=== PATIENT | female | born 2000 | race Caucasian/White ===

== ENCOUNTER 2019-07-22 18:30 | Outpatient (CLI) | payer OTHER, SELFPAY | END 2019-07-22 19:12 | disposition home or self-care (01) | LOC: OB 07-25 13:16 | DX: O26.23 Pregnancy care for patient with recurrent pregnancy loss, third trimester (principal); Z3A.30 30 weeks gestation of pregnancy | CPT/HCPCS: 59025; G0378; G0379 ==

== ENCOUNTER → 2020-06-11 17:00 | Outpatient (CLI) | payer OTHER, MEDICAID, SELFPAY ==
[2020-06-11 18:03] LABS: Add Manual Diff / Slide Review NO; Basophils Absolute Auto 0 /uL (0-100); Basophils Percent Auto 0.4 % (0-2); Eosinophils Absolute Auto 100 /uL (0-450); Hemoglobin 14.1 g/dL (12.0-16.0); Lymphocytes Absolute Auto 2700 /uL (1100-4500); Lymphocytes Percent Auto 28.5 % (25-40); Mean Corpuscular HGB Conc 33.5 % (30-36); Mean Corpuscular Hemoglobin 28.8 PG (26-34); Monocytes Absolute Auto 800 /uL (0-900); Monocytes Percent Auto 7.9 % (3-14); Neutrophils Absolute Auto 6000 /uL (1500-7000); Neutrophils Percent Auto 62.2 % (50-75); Platelet Count 340 X10^3/uL (150-400); Red Blood Cell Count 4.88 X10^6/uL (4.0-5.2); Red Cell Distribution Width 13.4 % (11.6-14.8); White Blood Cell Count 9.6 X10^3/uL (4.5-11.0)
[2020-06-11 19:42] LABS: Alanine Aminotransferase 30 IU/L (<35); Albumin 4.6 g/dL (3.5-5.0); Albumin Globulin Ratio 1.8 (1.0-2.8); Alkaline Phosphatase 110 U/L (38-126); Aspartate Aminotransferase 32 IU/L (14-36); BUN Creatinine Ratio 20.8 (6-22); Bilirubin Total 0.9 mg/dL (0.2-1.3); Blood Urea Nitrogen 11 mg/dL (7-17); Calcium 9.9 mg/dL (8.4-10.2); Carbon Dioxide 23 mmol/L (22-32); Chloride 105 mmol/L (98-107); Estimated Glomerular Filt Rate > 60.0 mL/min (>60); Globulin 2.6 g/dL (1.7-4.1); Glucose 72 mg/dL (70-100); HEMOLYSIS < 15 (0-50); Potassium 4.3 mmol/L (3.4-5.1); Sodium 139 mmol/L (137-145); Total Protein 7.2 g/dL (6.3-8.2)
[2020-06-11 20:13] LABS: TSH w/ Reflex to FT4 1.13 uIU/mL (0.47-4.68)
== END ==
PROVIDERS: Referring Provider Registered Nurse; Visit Provider Registered Nurse
DX: D64.9 Anemia, unspecified (principal); Z68.36 Body mass index [BMI] 36.0-36.9, adult
CPT/HCPCS: 36415; 80053; 84443; 85025

== ENCOUNTER → 2020-08-20 09:06 | Outpatient (CLI) | payer OTHER, MEDICAID, SELFPAY ==
[2020-08-20 10:02] LABS: HCG Quantitative /Beta subunit 558.2 mIU/mL; Total Iron Binding Capacity 332 ug/dL (265-497)
[2020-08-20 10:21] LABS: Ferritin 16 ng/mL (6-137)
== END ==
PROVIDERS: PCP Registered Nurse; Referring Provider Obstetrics & Gynecology; Visit Provider Obstetrics & Gynecology
DX: Z34.81 Encounter for supervision of other normal pregnancy, first trimester (principal); D50.9 Iron deficiency anemia, unspecified
CPT/HCPCS: 36415; 82728; 83550; 84702

== ENCOUNTER → 2020-08-23 10:13 | Outpatient (CLI) | payer OTHER, MEDICAID, SELFPAY ==
[2020-08-23 11:54] LABS: HCG Quantitative /Beta subunit 2265.8 mIU/mL
== END ==
PROVIDERS: PCP Registered Nurse; Referring Provider Obstetrics & Gynecology; Visit Provider Obstetrics & Gynecology
DX: Z34.81 Encounter for supervision of other normal pregnancy, first trimester (principal)
CPT/HCPCS: 36415; 84702

== ENCOUNTER 2020-08-31 22:34 | Emergency (ER) | payer OTHER, MEDICAID, SELFPAY ==
[2020-08-31 22:43] VITALS: BP 136/78; PULSE 92; RESP 18; TEMP 36.7; O2SAT 100; BMI 36.1
--- NOTE | 2020-08-31 22:58 | ED_ITS ---
HPI - General Chief complaint: Urogenital-Female Stated complaint: Thinks having a miscarriage Time Seen by Provider: 08/31/20 22:45 Source: patient Mode of arrival: Ambulatory Limitations: no limitations History of Present Illness HPI Narrative: Patient here for complaints of vaginal bleeding/spotting starting 2 days ago with small amount of clots. No syncope or dyspnea. Patient is A4..... LMP July 18, 2020. Had phone call intake with OBGYN Dr. Morales office on August 26, 2020. Last miscarriage was November. Requiring D&C. Complains of mild discomfort in the pelvis. No history of ectopic . Has appointment with Dr. Morales next week. Placed on hormone due to previous miscarriages, is on vitamin Hx Last Menstrual Period: July 18, 2020 Patient : Yes Related Data Home Medications Medication Instructions Recorded Confirmed Vitamin 1 tab PO DAILY 06/11/20 06/14/20 aspirin 81 mg tablet,delayed 81 mg PO DAILY 08/19/20 release Previous Rx's Medication Instructions Recorded progesterone micronized 200 mg 200 mg PO BEDTIME 30 Days #30 cap 08/19/20 capsule Allergies Allergy/AdvReac Type Severity Reaction Status Date / Time etonogestrel [From Nexplanon] Allergy Severe Large area Verified 08/26/20 12:21 w/Hives; Penicillins Allergy Mild Hives, Verified 08/26/20 12:21 Throat swelling. Review of Systems Review of Systems Narrative: GENERAL: Denies chills, fatigue, malaise, fever, sweats. HEENT: Denies sinus pain, ear pain, sore throat, difficulty swallowing RESPIRATORY: Denies dyspnea, cough CARDIOVASCULAR: Denies chest pain, palpitations, edema, GASTROINTESTINAL: Denies nausea, vomiting, abdominal pain, diarrhea, cons tipation, melena. : Denies dysuria, frequency, hematuria, complains of pelvic pain/vaginal bleeding MUSCULOSKELETAL: denies muscle or bony pain SKIN: Denies rash, skin lesions NEUROLOGIC: Denies weakness, headache, numbness, change in speech, confusion PSYCHIATRIC: No SI or HI or hallucinations ROS Unobtainable: All systems reviewed & are unremarkable except as noted in HPI and below PMFSH - Past Medical History Hx Last Menstrual Period: July 18, 2020 Patient : Yes Exam Narrative Exam Narrative: GENERAL: patient appears stated age. Well-nourished, well- developed patient, in no distress, not toxic not dyspneic HEAD: Normocephalic. EYES: Pupils equal round and reactive. No scleral icterus. No injection no discharge ENT: Mucous membranes moist. No drooling no tongue elevation no trismus no malocclusion NECK: Trachea midline. Non tender CARDIOVASCULAR: Regular rate and rhythm without murmurs, gallops, or rubs. RESPIRATORY: Clear to auscultation. Breath sounds equal bilaterally. No wheezes, rales, or rhonchi. GASTROINTESTINAL: Abdomen soft, non-tender, nondistended. : Nurse Sahara, at bedside to assist in electronic scale tester in pelvic exam. Normal external. No vaginal discharge. No bleeding or blood clots in the vaginal vault, os is closed. No CMT. No lesions. No uterine tenderness no adnexal tenderness no tissue at the os EXTREMITIES: No gross deformities. BACK: Nontender without deformity or crepitance. No flank tenderness. NEURO: AOx4. SKIN: Warm and dry PSYCH: Not anxious, is cooperative Initial Vital Signs Initial Vital Signs: Vital Signs Temperature 98.1 F 08/31/20 22:43 Pulse Rate 92 H 08/31/20 22:43 Respiratory Rate 18 08/31/20 22:43 Blood Pressure 136/78 08/31/20 22:43 Pulse Oximetry 100 08/31/20 22:43 Course Course Course Narrative: No complaints during stay at the emergency department. No bleeding. Orders Ordered: ED Orders 08/31/20 23:09 Wet Prep Tric BV Jennifer Stat 08/31/20 23:30 ABO RH Type Stat Complete Blood Count AUTO DIFF Stat Comprehensive Metabolic Panel Stat HCG Quantitative /Beta subunit Stat Prothrombin Time INR Stat 08/31/20 23:39 Chlamydia Gonorrhea PCR -URINE Stat Reevaluation(s) Reevaluation #1: Reviewed results with patient and discussion with on-call OBGYN doctor Pereira, patient agrees with treatment plan ultrasound this time. Follow up on Wednesday with Dr. Morales and repeat quantitative hCG Time: 00:26 Consultations Consultation #1: Spoke with cut pressman inclusion internship Dr Pereira, no ultrasound at this time. Appropriate for follow-up tomorrow/Wednesday with her OBGYN Dr. Morales for repeat quantitative hCG Time: 00:27 Vital Signs Vital signs: Vital Signs - 8 hr 08/31/20 22:43 Temperature 98.1 F Pulse Rate 92 H Respiratory Rate 18 Blood Pressure 136/78 Pulse Oximetry 100 MDM - OB/Uterine Contractions Medical Records Attestation: I reviewed the patient's medical records. Lab Data Attestation: I reviewed the patient's lab results. Result diagrams: 08/31/20 23:30 08/31/20 23:30 Labs: Lab Results 08/31/20 08/31/20 08/31/20 Range/Units 23:30 23:30 23:30 WBC 14.5 H (4.5-11.0) X10^3/uL RBC 4.35 (4.0-5.2) X10^6/uL Hgb 12.5 (12.0-16.0) g/dL Hct 37.8 (36-46) % MCV 86.8 (80-100) fL MCH 28.8 (26-34) PG MCHC 33.2 (30-36) % RDW 13.1 (11.6-14.8) % Plt Count 381 (150-400) X10^3/uL Neut % (Auto) 71.2 (50-75) % Lymph % (Auto) 19.7 L (25-40) % [place] % (Auto) 7.4 (3-14) % Eos % (Auto) 1.0 L (2-4) % Baso % (Auto) 0.7 (0-2) % Neut # (Auto) 25229 H (0359-2731) /uL Lymph # (Auto) 2900 (4890-1826) /uL [place] # (Auto) 1100 H (0-900) /uL Eos # (Auto) 100 (0-450) /uL Baso # (Auto) 100 (0-100) /uL PT 12.2 (10.1-12.7) SECONDS INR 1.1 (0.9-1.3) Sodium 135 L (137-145) mmol/L Potassium 4.4 (3.4-5.1) mmol/L Chloride 102 (98-107) mmol/L Carbon Dioxide 27 (22-32) mmol/L BUN 14 (7-17) mg/dL Creatinine 0.56 (0.52-1.04) mg/dL Estimated GFR > 60.0 (>60) mL/min BUN/Creatinine Ratio 25.0 H (6-22) Glucose 107 H (70-100) mg/dL Calcium 9.5 (8.4-10.2) mg/dL Total Bilirubin 0.4 (0.2-1.3) mg/dL AST 23 (14-36) IU/L ALT 20 (<35) IU/L Alkaline Phosphatase 78 (38-126) U/L Total Protein 7.2 (6.3-8.2) g/dL Albumin 4.1 (3.5-5.0) g/dL Globulin 3.1 (1.7-4.1) g/dL Albumin/Globulin Ratio 1.3 (1.0-2.8) HCG, Quant 96375 mIU/mL Blood Type 08/31/20 Range/Units 23:30 WBC (4.5-11.0) X10^3/uL RBC (4.0-5.2) X10^6/uL Hgb (12.0-16.0) g/dL Hct (36-46) % MCV (80-100) fL MCH (26-34) PG MCHC (30-36) % RDW (11.6-14.8) % Plt Count (150-400) X10^3/uL Neut % (Auto) (50-75) % Lymph % (Auto) (25-40) % [place] % (Auto) (3-14) % Eos % (Auto) (2-4) % Baso % (Auto) (0-2) % Neut # (Auto) (5527-0998) /uL Lymph # (Auto) (9757-8139) /uL [place] # (Auto) (0-900) /uL Eos # (Auto) (0-450) /uL Baso # (Auto) (0-100) /uL PT (10.1-12.7) SECONDS INR (0.9-1.3) Sodium (137-145) mmol/L Potassium (3.4-5.1) mmol/L Chloride (98-107) mmol/L Carbon Dioxide (22-32) mmol/L BUN (7-17) mg/dL Creatinine (0.52-1.04) mg/dL Estimated GFR (>60) mL/min BUN/Creatinine Ratio (6-22) Glucose (70-100) mg/dL Calcium (8.4-10.2) mg/dL Total Bilirubin (0.2-1.3) mg/dL AST (14-36) IU/L ALT (<35) IU/L Alkaline Phosphatase (38-126) U/L Total Protein (6.3-8.2) g/dL Albumin (3.5-5.0) g/dL Globulin (1.7-4.1) g/dL Albumin/Globulin Ratio (1.0-2.8) HCG, Quant mIU/mL Blood Type B Positive Urine Dip Bedside Urine Glucose Negative Bedside Urine Bilirubin - Negative Bedside Urine Ketone - Negative Urine Specific [place] 1.020 Bedside Urine Occult Blood - Negative Bedside Urine pH 6.0 Bedside Urine Protein - Negative Bedside Urine Urobilinogen - Negative Bedside Urine Nitrite - Negative Bedside Urine Leukocytes - Negative Esterase MDM Narrative Medical decision making narrative: A quantitative hCG levels on August 20, 2025 158, August 23, 2020 was 2265, today [phone],[id number] appropriate for discharge home. White cell count nonspecific and could be elevated during . No recent illness fever chills. Not tachycardic or hypotensive. No brisk bleeding during vaginal exam. Ectopic in differential and discussed with Dr. Pereira, but clinically likely threatened , patient in no distress. Only mild pelvic pain. No active bleeding at this time. No peritoneal signs. Discharge Plan Departure Patient Disposition: Home Clinical Impression: Miscarriage, threatened, early Discharge Date/Time: 09/01/20 00:50 Instructions: DI for Threatened Activity Restrictions/Additional Instructions: Call Dr. Morales office on Wednesday morning for office recheck this week, she may want to see you before your 1st appointment. No sexual activity. Return if worse if any questions concerns or increased bleeding. Prescriptions: No Action progesterone micronized [Prometrium] 200 mg capsule 200 mg PO BEDTIME 30 Days Qty: 30 RF: 3 aspirin [Adult Aspirin Regimen] 81 mg tablet,delayed release (DR/EC) 81 mg PO DAILY RF: 0 Vitamin 1 tab PO DAILY RF: 0 Referrals: Steffanie Morales MD [Physician] - Juan Rawls ARNP [Primary Care Provider] -
[2020-08-31 23:40] LABS: Add Manual Diff / Slide Review NO; Basophils Absolute Auto 100 /uL (0-100); Basophils Percent Auto 0.7 % (0-2); Eosinophils Absolute Auto 100 /uL (0-450); Hematocrit 37.8 % (36-46); Hemoglobin 12.5 g/dL (12.0-16.0); Lymphocytes Absolute Auto 2900 /uL (1100-4500); Lymphocytes Percent Auto 19.7 % (25-40); Mean Corpuscular HGB Conc 33.2 % (30-36); Mean Corpuscular Hemoglobin 28.8 PG (26-34); Mean Corpuscular Volume 86.8 fL (80-100); Monocytes Absolute Auto 1100 /uL (0-900); Monocytes Percent Auto 7.4 % (3-14); Neutrophils Absolute Auto 10400 /uL (1500-7000); Neutrophils Percent Auto 71.2 % (50-75); Platelet Count 381 X10^3/uL (150-400); Red Blood Cell Count 4.35 X10^6/uL (4.0-5.2); Red Cell Distribution Width 13.1 % (11.6-14.8); White Blood Cell Count 14.5 X10^3/uL (4.5-11.0)
[2020-08-31 23:44] LABS: INR 1.1 (0.9-1.3); Prothrombin Time 12.2 SECONDS (10.1-12.7)
[2020-08-31 23:53] LABS: Alanine Aminotransferase 20 IU/L (<35); Albumin 4.1 g/dL (3.5-5.0); Albumin Globulin Ratio 1.3 (1.0-2.8); Alkaline Phosphatase 78 U/L (38-126); Aspartate Aminotransferase 23 IU/L (14-36); Bilirubin Total 0.4 mg/dL (0.2-1.3); Blood Urea Nitrogen 14 mg/dL (7-17); Calcium 9.5 mg/dL (8.4-10.2); Carbon Dioxide 27 mmol/L (22-32); Chloride 102 mmol/L (98-107); Estimated Glomerular Filt Rate > 60.0 mL/min (>60); Globulin 3.1 g/dL (1.7-4.1); Glucose 107 mg/dL (70-100); HEMOLYSIS < 15 (0-50); Potassium 4.4 mmol/L (3.4-5.1); Sodium 135 mmol/L (137-145); Total Protein 7.2 g/dL (6.3-8.2)
[2020-09-01 00:13] LABS: HCG Quantitative /Beta subunit 24596 mIU/mL
[2020-09-01 01:17] LABS: Urine N gonorrhoeae NOT DETECTED
[2020-09-01 01:19] LABS: Urine Chlamydia NOT DETECTED
== END 2020-09-01 00:50 | disposition home or self-care (01) ==
PROVIDERS: Emergency Provider Emergency Medicine; PCP Registered Nurse
DX: O20.0 Threatened abortion (principal); R10.2 Pelvic and perineal pain
CPT/HCPCS: 36415; 80053; 81003; 84702; 85025; 85610; 86900; 86901; 87210; 87491; 87591; 99283

== ENCOUNTER → 2020-09-30 17:34 | Outpatient (CLI) | payer OTHER, MEDICAID, SELFPAY ==
[2020-09-30 17:56] LABS: Add Manual Diff / Slide Review NO; Basophils Absolute Auto 0 /uL (0-100); Basophils Percent Auto 0.3 % (0-2); Eosinophils Absolute Auto 200 /uL (0-450); Eosinophils Percent Auto 1.6 % (2-4); Hematocrit 39.4 % (36-46); Hemoglobin 13.1 g/dL (12.0-16.0); Lymphocytes Absolute Auto 3300 /uL (1100-4500); Lymphocytes Percent Auto 25.7 % (25-40); Mean Corpuscular HGB Conc 33.2 % (30-36); Mean Corpuscular Hemoglobin 28.8 PG (26-34); Mean Corpuscular Volume 86.7 fL (80-100); Monocytes Absolute Auto 1000 /uL (0-900); Neutrophils Absolute Auto 8200 /uL (1500-7000); Neutrophils Percent Auto 64.4 % (50-75); Platelet Count 355 X10^3/uL (150-400); Red Blood Cell Count 4.54 X10^6/uL (4.0-5.2); Red Cell Distribution Width 13.3 % (11.6-14.8); White Blood Cell Count 12.7 X10^3/uL (4.5-11.0)
[2020-09-30 19:01] LABS: HIV 1 & 2 Ab/Ag 4th Gen Combo NEGATIVE (NEGATIVE); Hep C Virus Ab w/Reflex Quant NEGATIVE s/c (NEGATIVE); Hepatitis B Surface Antigen NEGATIVE s/c (NEGATIVE); Rubella Antibody IgG 18.6 IU/mL (>15)
[2020-10-02 07:00] LABS: RPR Screen Non Reactive (Non Reactive)
[2020-10-02 10:30] LABS: Varicella IgG Antibody 856 index (Immune >165)
== END ==
PROVIDERS: PCP Registered Nurse; Referring Provider Obstetrics & Gynecology; Visit Provider Obstetrics & Gynecology
DX: Z34.81 Encounter for supervision of other normal pregnancy, first trimester (principal)
CPT/HCPCS: 36415; 80055; 86787; 86803; 86850; 86900; 86901; 87389

== ENCOUNTER → 2020-10-10 15:17 | Outpatient (CLI) | payer OTHER, MEDICAID, SELFPAY | PROVIDERS: PCP Registered Nurse; Referring Provider Obstetrics & Gynecology; Visit Provider Obstetrics & Gynecology | DX: O26.21 Pregnancy care for patient with recurrent pregnancy loss, first trimester (principal); O20.9 Hemorrhage in early pregnancy, unspecified; Z3A.12 12 weeks gestation of pregnancy | CPT/HCPCS: 36415 ==

== ENCOUNTER 2020-10-10 15:42 | Observation (INO) | payer OTHER, MEDICAID, SELFPAY ==
[2020-10-10] MEDS: LACTATED RINGERS 1,000 ML 1000 ML IV (16:20)
[2020-10-10] MEDS: ONDANSETRON 4 MG/2 ML INJ IV (16:40)
== END 2020-10-10 17:44 | disposition home or self-care (01) ==
PROVIDERS: Admitting Provider Obstetrics & Gynecology; PCP Registered Nurse; Referring Provider Obstetrics & Gynecology; Visit Provider Obstetrics & Gynecology
DX: O26.21 Pregnancy care for patient with recurrent pregnancy loss, first trimester (principal); O20.9 Hemorrhage in early pregnancy, unspecified; O21.0 Mild hyperemesis gravidarum; Z3A.12 12 weeks gestation of pregnancy
CPT/HCPCS: 36415; 96360; G0378; G0379; J2405

== ENCOUNTER 2020-10-27 22:02 | Emergency (ER) | payer OTHER, MEDICAID, SELFPAY ==
[2020-10-27 22:09] VITALS: BP 127/70; PULSE 98; RESP 18; TEMP 37.2; O2SAT 99; BMI 37.0
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
[2020-10-27] MEDS: METOCLOPRAMIDE 10 MG/2 ML INJ IV (22:27)
[2020-10-27] MEDS: SODIUM CHLORIDE 0.9% 1,000 ML 1000 ML IV (22:27)
[2020-10-27] MEDS: PANTOPRAZOLE 40 MG VIAL IV (22:28)
[2020-10-27 22:32] LABS: Add Manual Diff / Slide Review NO; Basophils Absolute Auto 0 /uL (0-100); Basophils Percent Auto 0.2 % (0-2); Eosinophils Absolute Auto 200 /uL (0-450); Eosinophils Percent Auto 1.3 % (2-4); Hematocrit 36.3 % (36-46); Hemoglobin 12.4 g/dL (12.0-16.0); Lymphocytes Absolute Auto 3200 /uL (1100-4500); Lymphocytes Percent Auto 25.5 % (25-40); Mean Corpuscular HGB Conc 34.1 % (30-36); Mean Corpuscular Hemoglobin 29.5 PG (26-34); Mean Corpuscular Volume 86.5 fL (80-100); Monocytes Absolute Auto 1000 /uL (0-900); Monocytes Percent Auto 8.1 % (3-14); Neutrophils Absolute Auto 8200 /uL (1500-7000); Neutrophils Percent Auto 64.9 % (50-75); Platelet Count 363 X10^3/uL (150-400); Red Blood Cell Count 4.19 X10^6/uL (4.0-5.2); Red Cell Distribution Width 13.5 % (11.6-14.8); White Blood Cell Count 12.7 X10^3/uL (4.5-11.0)
[2020-10-27 22:42] LABS: BUN Creatinine Ratio 25.8 (6-22); Blood Urea Nitrogen 8 mg/dL (7-17); Calcium 9.6 mg/dL (8.4-10.2); Carbon Dioxide 26 mmol/L (22-32); Chloride 107 mmol/L (98-107); Estimated Glomerular Filt Rate > 60.0 mL/min (>60); Glucose 99 mg/dL (70-100); HEMOLYSIS < 15 (0-50); Potassium 3.7 mmol/L (3.4-5.1); Sodium 136 mmol/L (137-145)
[2020-10-27 22:43] LABS: Ketones (Beta-Hydroxybutyrate) 0.08 mmol/L (<0.27)
[2020-10-27 23:12] VITALS: PULSE 85; O2SAT 100
[2020-10-27] MEDS: METOCLOPRAMIDE HCL 10 MG TABLET PO (23:21)
== END 2020-10-27 23:27 | disposition home or self-care (01) ==
PROVIDERS: Emergency Provider Emergency Medicine; PCP Registered Nurse
DX: O21.9 Vomiting of pregnancy, unspecified (principal); R53.83 Other fatigue; Z3A.14 14 weeks gestation of pregnancy
CPT/HCPCS: 36415; 80048; 82009; 85025; 96361; 96374; 96375; 99281; 99284; C9113; J2765

== ENCOUNTER → 2020-11-04 12:00 | Outpatient (CLI) | payer OTHER, MEDICAID, SELFPAY ==
[2020-11-06 20:36] LABS: AFP Value 29.9 ng/mL (.); Gest Age on Col Date 15.6 weeks (.); Insulin Dep Diabetes No (.); OSBR Risk 1IN 8933 (.); Results Report (.); Test Results *Screen Negative* (.)
== END ==
PROVIDERS: PCP Registered Nurse; Referring Provider Obstetrics & Gynecology; Visit Provider Obstetrics & Gynecology
DX: Z34.82 Encounter for supervision of other normal pregnancy, second trimester (principal); Z3A.15 15 weeks gestation of pregnancy
CPT/HCPCS: 36415; 82105

== ENCOUNTER → 2020-11-26 09:09 | Outpatient (CLI) | payer OTHER, MEDICAID, SELFPAY ==
--- NOTE | 2020-11-26 09:11 | DI.US.S_ITS ---
PROCEDURE: US OB >= 14 WEEKS FETUS INDICATIONS: ANATOMY OUTSIDE/PRIOR DATING DATA: Last menstrual period (LMP): 07/18/20. LMP-based estimated date of delivery (VALERIE): 04/24/21 . First dating scan (date and location): 09/25/[address] Morales . Estimated date of delivery (VALERIE) from first dating scan: 04/26/21 . TECHNIQUE: Real-time scanning was performed of the fetus, with image documentation and biometric measurements. Endovaginal scanning: Not needed COMPARISON: [facility], , OB >= 14 WEEKS FETUS, 11/04/2020, 11:47. [facility], , OB >= 14 WEEKS FETUS, 10/10/2020, 15:07. FINDINGS: General: A single living intrauterine gestation is present. Presentation: Transverse head left. Placenta: Placental position is posterior , without previa. Lower placental edge 2 cm or less from internal cervical os qualifies as low lying placenta. Amniotic fluid index: 10.2 cm, normal range is 5-24 cm. heart rate: 153 beats per minute. Maternal cervical canal: 3.9 cm long. Normal lower limit is 2.5 cm. Report any funneling of internal cervical os: % of canal length, shape (U or V), width or any U-shaped funneling. biometrics: Biparietal diameter: 4.1 cm, 18 weeks 3 days Head circumference: 15.8 cm, 18 weeks 2 days Abdominal circumference: 14.2 cm, 19 weeks 4 days Femur length: 3.1 cm, 19 weeks 4 days Estimated gestational age from initial scan: 18 weeks 3 days. Composite gestational age from present scan: 19 weeks 0 days Estimated weight and percentile: 288 g, upper 93rd percentile Measurement variability for biometric dating: +/- 7 days from 14 weeks to 15 weeks 6 days gestation, +/- 10 days from 16 weeks to 21 weeks 6 days gestation, +/- 2 weeks from 22 weeks to 27 weeks 6 days gestation, +/- 3 weeks for 28 weeks gestation or later. weight reference: 4500 g or EFW >90/95% is considered macrosomia or large for gestational age. EFW <10% is small for gestational age. EFW 5% or less is considered intra-uterine growth restriction. Anatomic survey: Neuro: Ventricles are non-dilated at less than 10 mm. Cisterna magna is normal at 3-11 mm. Cerebellum is normal in size and morphology. Nuchal skin fold: Normal at less than 6 mm between 14-21 weeks gestational age. Face: Nose and lips, facial profile are normal. Spine: No evidence for spina bifida. Heart: 4-chambered heart is present, with normal ventricular outflow tracts. Diaphragm: Diaphragm is intact. Stomach: Left-sided stomach is present. Kidneys: No hydronephrosis. Normal is less than 5 mm in 2nd trimester, less than 7 mm in 3rd trimester. Cord: 3-vessel cord has orthotopic insertion. Bladder: Normal in size. Extremities: All 4 extremities identified. IMPRESSION: Normal survey of anatomy, no nominal E found, appropriate interval growth, delivery date is projected to be centered on 04/26/21. Dictated by: Johan Rivas M.D. on 11/26/2020 at 13:35 Approved by: Johan Rivas M.D. on 11/26/2020 at 13:38
== END ==
PROVIDERS: PCP Registered Nurse; Referring Provider Obstetrics & Gynecology; Visit Provider Obstetrics & Gynecology
DX: Z34.82 Encounter for supervision of other normal pregnancy, second trimester (principal); Z3A.19 19 weeks gestation of pregnancy
CPT/HCPCS: 76811

== ENCOUNTER → 2020-12-30 16:23 | Outpatient (CLI) | payer OTHER, MEDICAID, SELFPAY ==
[2021-01-02 02:36] LABS: Chlamydia trachomatis NAA Negative (Negative); Neisseria gonorrhoeae NAA Negative (Negative)
== END ==
PROVIDERS: PCP Registered Nurse; Visit Provider Obstetrics & Gynecology
DX: Z34.81 Encounter for supervision of other normal pregnancy, first trimester (principal); Z3A.23 23 weeks gestation of pregnancy
CPT/HCPCS: 87491; 87591

== ENCOUNTER → 2021-02-04 15:53 | Outpatient (CLI) | payer OTHER, MEDICAID, SELFPAY ==
--- NOTE | 2021-02-04 15:53 | DI.US.S_ITS ---
PROCEDURE: US OB LIMITED INDICATIONS: size >> dates, growth and RYAN OUTSIDE/PRIOR DATING DATA: Last menstrual period (LMP): 07/18/2020. LMP-based estimated date of delivery (VALERIE): 04/24/2021 . First dating scan (date and location): 09/25/2020 . Estimated date of delivery (VALERIE) from first dating scan: 04/26/2021 . TECHNIQUE: Real-time scanning was performed of the fetus, with image documentation and biometric measurements. Endovaginal scanning: No COMPARISON: [facility], OB >= 14 WEEKS FETUS, 11/26/2020, 9:39. FINDINGS: General: A single living intrauterine gestation is present. Presentation: Vertex. Placenta: Placental position is posterior , without previa. Amniotic fluid index: 13.4 cm, normal range is 5-24 cm. heart rate: 144 beats per minute. Maternal cervical canal: Not well seen. biometrics: Biparietal diameter: 29 weeks 3 days Head circumference: 28 weeks 1 day Abdominal circumference: 29 weeks Femur length: 29 weeks 3 days Estimated gestational age from initial scan: 28 weeks 3 days Composite gestational age from present scan: 29 weeks Estimated weight and percentile: 1332 g, 60 second percentile Measurement variability for biometric dating: +/- 7 days from 14 weeks to 15 weeks 6 days gestation, +/- 10 days from 16 weeks to 21 weeks 6 days gestation, +/- 2 weeks from 22 weeks to 27 weeks 6 days gestation, +/- 3 weeks for 28 weeks gestation or later. weight reference: 4500 g or EFW >90/95% is considered macrosomia or large for gestational age. EFW <10% is small for gestational age. EFW 5% or less is considered intra-uterine growth restriction. Other: Not applicable. IMPRESSION: Single living IUP redemonstrated and interval growth is within normal limits. Dictated by: Chang DURAN Interpreted: Johan Rivas MD on 02/04/2021 at 17:26 Approved by: Johan Rivas M.D. on 02/04/2021 at 17:31
== END ==
PROVIDERS: PCP Registered Nurse; Referring Provider Family Medicine; Visit Provider Family Medicine
DX: O26.843 Uterine size-date discrepancy, third trimester (principal); Z3A.29 29 weeks gestation of pregnancy
CPT/HCPCS: 76815

== ENCOUNTER → 2021-06-23 11:25 | Outpatient (CLI) | payer OTHER, MEDICAID, SELFPAY ==
[2021-06-23 12:26] LABS: COVID19 -Nasal RAPID Negative (Negative)
== END ==
PROVIDERS: PCP Registered Nurse; Visit Provider Physician Assistant
DX: R05 Cough (principal); R06.02 Shortness of breath; R09.81 Nasal congestion; R51.9 Headache, unspecified; Z20.822 Contact with and (suspected) exposure to COVID-19
CPT/HCPCS: 87635

== ENCOUNTER → 2021-08-05 16:43 | Outpatient (CLI) | payer OTHER, MEDICAID, SELFPAY ==
[2021-08-05 17:19] LABS: COVID19 -Nasal RAPID POSITIVE (Negative)
== END ==
PROVIDERS: PCP Registered Nurse; Visit Provider Physician Assistant
DX: U07.1 COVID-19 (principal)
CPT/HCPCS: 87635; C9803

== ENCOUNTER → 2021-12-04 09:53 | Outpatient (CLI) | payer OTHER, MEDICAID, SELFPAY ==
[2021-12-04 11:28] LABS: Ur Creatinine Normal (Normal); Ur Specific Gravity Normal (Normal); Urine pH Normal (Normal)
[2021-12-04 11:29] LABS: UR Morphine/Opiate cutoff 300 Negative (Negative); Urine Amphetamines Negative (Negative); Urine Barbiturates Negative (Negative); Urine Benzodiazepines Negative (Negative); Urine Cocaine Negative (Negative); Urine MDMA Negative (Negative); Urine Methadone Negative (Negative); Urine Methamphetamines Negative (Negative); Urine Oxycodone Negative (Negative); Urine Phencyclidine Negative (Negative); Urine Tetrahydrocannabinol Negative (Negative); Urine Tricyclic Antidepressant Negative (Negative)
[2021-12-04 11:52] LABS: Alanine Aminotransferase 16 IU/L (<35); Albumin 4.2 g/dL (3.5-5.0); Albumin Globulin Ratio 1.6 (1.0-2.8); Alkaline Phosphatase 73 U/L (38-126); Aspartate Aminotransferase 22 IU/L (14-36); BUN Creatinine Ratio 29.2 (6-22); Bilirubin Total 0.4 mg/dL (0.2-1.3); Blood Urea Nitrogen 14 mg/dL (7-17); Calcium 9.5 mg/dL (8.4-10.2); Carbon Dioxide 27 mmol/L (22-32); Chloride 105 mmol/L (98-107); Estimated Glomerular Filt Rate > 60.0 mL/min (>60); Globulin 2.7 g/dL (1.7-4.1); Glucose 98 mg/dL (70-100); HEMOLYSIS < 15 (0-50); Potassium 4.6 mmol/L (3.4-5.1); Sodium 137 mmol/L (137-145); Total Protein 6.9 g/dL (6.3-8.2)
== END ==
PROVIDERS: PCP Registered Nurse; Referring Provider Registered Nurse; Visit Provider Registered Nurse
DX: F90.9 Attention-deficit hyperactivity disorder, unspecified type (principal); Z79.899 Other long term (current) drug therapy
CPT/HCPCS: 36415; 80053; 80305

== ENCOUNTER 2022-03-19 16:19 | Emergency (ER) | payer OTHER, MEDICAID, SELFPAY ==
[2022-03-19 16:28] VITALS: BP 153/75; PULSE 107; RESP 18; TEMP 36.8; O2SAT 100; BMI 36.1
--- NOTE | 2022-03-19 17:12 | DI.US.S_ITS ---
PROCEDURE: US PELVIC COMPLETE INDICATIONS: bleeding TECHNIQUE: Real-time scanning was performed of the pelvic organs, with image documentation. Additional endovaginal scanning was necessary due to incomplete visualization of the adnexal and endometrial structures by transabdominal scanning. COMPARISON: [facility], US, US PELVIC COMPLETE, 09/03/2020, 10:32. FINDINGS: Uterus: Uterus is anteverted and normal in size at 7.7 x 4.2 x 5.4 cm. The myometrium is homogeneous. The endometrium measures 11 mm combined thickness. There is an IUD. There is a small endometrial cyst measuring 4 x 3 x 3 mm. Ovaries: The right ovary measures 2.5 x 1.8 x 1.8 cm. The left ovary measures 3.5 x 1.8 x 2.6 cm. The ovaries have a normal sonographic appearance. There is a 1.4 x 1.1 x 1.5 cm complex cyst in the left lower. There is positive vascularity to ovaries on Doppler ultrasound. Other: No pathologic free abdominal or pelvic fluid. IMPRESSION: 1. An IUD in uterus. Endometrium measures 11 mm in thickness, which is within normal limits for a menstruation woman. 2. A 4 x 3 x 3 mm endometrial cyst. 3. A complex cyst in the left ovary. Recommend ultrasound follow-up if clinically indicated. We strive to produce accurate, complete, and clear reports of imaging services. To assist us in improving patient care, this report was composed using standard report templates and voice recognition software. Therefore, it may contain abnormal punctuation, insertions and/or omissions. Occasional wrong-word or sound-alike substitutions may occur. Though we review the report and make efforts to correct it, we do recommend that the report be read carefully in proper context to recognize any text inaccuracies. Dictated by: Cristiana Brown M.D. on 03/19/2022 at 17:32 Approved by: Cristiana Brown M.D. on 03/19/2022 at 17:38
[2022-03-19 17:19] LABS: Add Manual Diff / Slide Review NO; Basophils Absolute Auto 100 /uL (0-100); Basophils Percent Auto 0.9 % (0-2); Eosinophils Absolute Auto 200 /uL (0-450); Hematocrit 38.7 % (36-46); Hemoglobin 12.9 g/dL (12.0-16.0); Lymphocytes Absolute Auto 2800 /uL (1100-4500); Lymphocytes Percent Auto 22.9 % (25-40); Mean Corpuscular HGB Conc 33.3 % (30-36); Mean Corpuscular Hemoglobin 27.8 PG (26-34); Mean Corpuscular Volume 83.6 fL (80-100); Monocytes Absolute Auto 900 /uL (0-900); Monocytes Percent Auto 7.5 % (3-14); Neutrophils Absolute Auto 8100 /uL (1500-7000); Neutrophils Percent Auto 66.7 % (50-75); Platelet Count 370 X10^3/uL (150-400); Red Blood Cell Count 4.63 X10^6/uL (4.0-5.2); Red Cell Distribution Width 14.1 % (11.6-14.8); White Blood Cell Count 12.1 X10^3/uL (4.5-11.0)
[2022-03-19 17:21] LABS: Alanine Aminotransferase 17 IU/L (<35); Albumin 4.6 g/dL (3.5-5.0); Albumin Globulin Ratio 1.5 (1.0-2.8); Alkaline Phosphatase 76 U/L (38-126); Aspartate Aminotransferase 22 IU/L (14-36); BUN Creatinine Ratio 16.9 (6-22); Bilirubin Total 0.7 mg/dL (0.2-1.3); Blood Urea Nitrogen 10 mg/dL (7-17); Calcium 8.6 mg/dL (8.4-10.2); Carbon Dioxide 23 mmol/L (22-32); Chloride 108 mmol/L (98-107); Estimated Glomerular Filt Rate > 60 mL/min (>60); Globulin 3.1 g/dL (1.7-4.1); Glucose 89 mg/dL (70-100); HEMOLYSIS < 15 (0-50); Lipase 86 U/L (23-300); Sodium 139 mmol/L (137-145); Total Protein 7.7 g/dL (6.3-8.2)
[2022-03-19 17:58] LABS: HCG Quantitative /Beta subunit < 2.4 mIU/mL
[2022-03-19 19:48] LABS: Bacteria Urine Occasional (0-1); Mucus Urine 3+ (Negative); RBC Urine 0-1/HPF (0-5/HPF); Squamous Epithelial Cell Urine 1-5 /HPF (0-5/HPF); WBC Urine 0-1/HPF (0-5/HPF)
[2022-03-19 19:49] LABS: Culture Indicated Urine Cult Not Indicated; Ictotest Urine Negative (Negative)
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
[2022-03-19] MEDS: ONDANSETRON 4 MG/2 ML INJ IV (20:47)
[2022-03-19] MEDS: KETOROLAC 30 MG/ML VIAL IV (20:47)
[2022-03-19] MEDS: OXYCODONE/APAP 5/325 PREPACK 1 BOTTLE MISC (20:48)
[2022-03-19 21:06] VITALS: BP 126/73; PULSE 87; RESP 15; O2SAT 97
== END 2022-03-19 21:06 | disposition home or self-care (01) ==
PROVIDERS: Emergency Medicine; Emergency Provider Emergency Medicine; PCP Nurse Practitioner
DX: N83.202 Unspecified ovarian cyst, left side (principal); R11.2 Nausea with vomiting, unspecified; R19.7 Diarrhea, unspecified
CPT/HCPCS: 36415; 76830; 76856; 80053; 81003; 81015; 81025; 83690; 84702; 85025; 96374; 96375; 99284; J1885; J2405

== ENCOUNTER → 2022-07-21 15:55 | Outpatient (CLI) | payer OTHER, MEDICAID, SELFPAY ==
[2022-07-21 16:20] LABS: Add Manual Diff / Slide Review NO; Basophils Absolute Auto 0 /uL (0-100); Basophils Percent Auto 0.4 % (0-2); Eosinophils Absolute Auto 100 /uL (0-450); Eosinophils Percent Auto 1.1 % (2-4); Hematocrit 35.9 % (36-46); Hemoglobin 11.9 g/dL (12.0-16.0); Lymphocytes Absolute Auto 2400 /uL (1100-4500); Lymphocytes Percent Auto 20.6 % (25-40); Mean Corpuscular HGB Conc 33.2 % (30-36); Mean Corpuscular Hemoglobin 27.1 PG (26-34); Mean Corpuscular Volume 81.7 fL (80-100); Monocytes Absolute Auto 1000 /uL (0-900); Neutrophils Absolute Auto 8000 /uL (1500-7000); Neutrophils Percent Auto 68.9 % (50-75); Platelet Count 386 X10^3/uL (150-400); Red Blood Cell Count 4.39 X10^6/uL (4.0-5.2); Red Cell Distribution Width 14.8 % (11.6-14.8); White Blood Cell Count 11.7 X10^3/uL (4.5-11.0)
[2022-07-21 16:47] LABS: HEMOLYSIS < 15 (0-50); Iron 46 ug/dL (37-170)
[2022-07-21 16:49] LABS: Alanine Aminotransferase 20 IU/L (<35); Albumin 4.2 g/dL (3.5-5.0); Albumin Globulin Ratio 1.3 (1.0-2.8); Alkaline Phosphatase 56 U/L (38-126); Aspartate Aminotransferase 23 IU/L (14-36); BUN Creatinine Ratio 15.4 (6-22); Bilirubin Total 0.5 mg/dL (0.2-1.3); Blood Urea Nitrogen 6 mg/dL (7-17); Calcium 9.4 mg/dL (8.4-10.2); Carbon Dioxide 23 mmol/L (22-32); Chloride 103 mmol/L (98-107); Estimated Glomerular Filt Rate > 60 mL/min (>60); Globulin 3.3 g/dL (1.7-4.1); Glucose 91 mg/dL (70-100); HEMOLYSIS < 15 (0-50); Sodium 138 mmol/L (137-145); Total Protein 7.5 g/dL (6.3-8.2)
[2022-07-21 16:58] LABS: Percent Iron Saturation 12 % (15-50); Total Iron Binding Capacity 399 ug/dL (265-497); Transferrin 300 mg/dL (206-381)
[2022-07-21 17:07] LABS: Free T3, Triiodothyronine Free 3.47 pg/mL (2.77-5.27); Free T4, Direct Thyroxine 1.25 ng/dL (0.78-2.19)
[2022-07-21 17:20] LABS: Thyroid Stimulating Hormone 1.43 uIU/mL (0.47-4.68)
[2022-07-21 17:21] LABS: Ferritin 6 ng/mL (6-137)
[2022-07-21 17:52] LABS: Folate > 20.0 ng/mL (2.76-20.0)
== END ==
PROVIDERS: PCP Nurse Practitioner; Referring Provider Nurse Practitioner; Visit Provider Nurse Practitioner
DX: D64.9 Anemia, unspecified (principal); R00.2 Palpitations
CPT/HCPCS: 36415; 80053; 82728; 82746; 83540; 83550; 84439; 84443; 84481; 85025

== ENCOUNTER → 2022-07-31 15:58 | Outpatient (CLI) | payer OTHER, MEDICAID, SELFPAY ==
[2022-07-31 17:06] LABS: Appearance Urine UA CLEAR; Bilirubin Urine UA NEGATIVE (NEGATIVE); Color Urine UA YELLOW; Glucose Urine UA NEGATIVE (Negative); Ketones Urine UA NEGATIVE (NEGATIVE); Leukocyte Esterase Urine UA NEGATIVE (NEGATIVE); Nitrite Urine UA NEGATIVE (Negative); Occult Blood Urine UA NEGATIVE (Negative); Protein Urine UA NEGATIVE (Negative); Urobilinogen Urine UA 0.2 E.U./dL (0.2)
[2022-07-31 17:14] LABS: Bacteria Urine Few (2-10); Culture Indicated Urine Cult Not Indicated; Mucus Urine 1+ (Negative); RBC Urine 0-1/HPF (0-5/HPF); Squamous Epithelial Cell Urine 5-10 /HPF (0-5/HPF); WBC Urine 0-1/HPF (0-5/HPF); pH Urine UA 6.5 (4.5-8.0)
== END ==
PROVIDERS: PCP Nurse Practitioner; Referring Provider Nurse Practitioner; Visit Provider Nurse Practitioner
DX: Z34.90 Encounter for supervision of normal pregnancy, unspecified, unspecified trimester (principal); D72.829 Elevated white blood cell count, unspecified
CPT/HCPCS: 81001

== ENCOUNTER → 2023-05-08 13:39 | Outpatient (CLI) | payer OTHER, MEDICAID, SELFPAY | PROVIDERS: PCP Nurse Practitioner; Visit Provider Registered Nurse | DX: R30.0 Dysuria (principal) | CPT/HCPCS: 81002; 87086 ==

== ENCOUNTER → 2024-08-29 11:59 | Outpatient (CLI) | payer OTHER, MEDICAID, SELFPAY ==
[2024-08-29 12:39] LABS: Hematocrit 39.8 % (36-46); Hemoglobin 13.4 g/dL (12.0-16.0); Mean Corpuscular HGB Conc 33.8 % (30-36); Mean Corpuscular Hemoglobin 30.1 PG (26-34); Platelet Count 269 X10^3/uL (150-400); Red Blood Cell Count 4.47 X10^6/uL (4.0-5.2); Red Cell Distribution Width 12.8 % (11.6-14.8); White Blood Cell Count 8.8 X10^3/uL (4.5-11.0)
[2024-08-29 12:56] LABS: Erythrocyte Sedimentation Rate 5 MM/HR (0-20)
[2024-08-29 13:11] LABS: Alanine Aminotransferase 23 IU/L (<35); Albumin 4.2 g/dL (3.5-5.0); Albumin Globulin Ratio 1.8 (1.0-2.8); Alkaline Phosphatase 55 U/L (38-126); Aspartate Aminotransferase 20 IU/L (14-36); BUN Creatinine Ratio 29.3 (6-22); Bilirubin Total 0.7 mg/dL (0.2-1.3); Blood Urea Nitrogen 17 mg/dL (7-17); Calcium 9.4 mg/dL (8.4-10.2); Carbon Dioxide 23 mmol/L (22-32); Chloride 105 mmol/L (98-107); Estimated Glomerular Filt Rate > 60 mL/min (>60); Globulin 2.4 g/dL (1.7-4.1); Glucose 85 mg/dL (70-100); HEMOLYSIS < 15 (0-50); Potassium 4.1 mmol/L (3.4-5.1); Sodium 135 mmol/L (137-145); Total Protein 6.6 g/dL (6.3-8.2)
[2024-08-29 13:29] LABS: Free T3, Triiodothyronine Free 3.38 pg/mL (2.77-5.27); Free T4, Direct Thyroxine 1.22 ng/dL (0.78-2.19)
[2024-08-29 13:42] LABS: Thyroid Stimulating Hormone 1.39 uIU/mL (0.47-4.68)
== END ==
PROVIDERS: PCP Student in an Organized Health Care Education/Training Program; Referring Provider Nurse Practitioner; Visit Provider Student in an Organized Health Care Education/Training Program
DX: Z00.00 Encounter for general adult medical examination without abnormal findings (principal); R63.4 Abnormal weight loss
CPT/HCPCS: 36415; 80053; 83036; 84439; 84443; 84481; 85027; 85651

== ENCOUNTER → 2024-10-18 07:58 | Outpatient (CLI) | payer OTHER, MEDICAID, SELFPAY | PROVIDERS: PCP Student in an Organized Health Care Education/Training Program; Referring Provider Student in an Organized Health Care Education/Training Program; Visit Provider Student in an Organized Health Care Education/Training Program | DX: R55 Syncope and collapse (principal); R42 Dizziness and giddiness | CPT/HCPCS: 93246; 93248 ==

== ENCOUNTER → 2024-12-01 09:38 | Outpatient (CLI) | payer OTHER, SELFPAY ==
[2024-12-01 11:51] LABS: HCG Quantitative /Beta subunit 46.79 mIU/mL
== END ==
PROVIDERS: PCP Student in an Organized Health Care Education/Training Program; Referring Provider Student in an Organized Health Care Education/Training Program; Visit Provider Student in an Organized Health Care Education/Training Program
DX: Z32.01 Encounter for pregnancy test, result positive (principal)
CPT/HCPCS: 36415; 84702

== ENCOUNTER → 2024-12-04 12:21 | Outpatient (CLI) | payer OTHER, SELFPAY ==
[2024-12-04 13:53] LABS: HCG Quantitative /Beta subunit 286.55 mIU/mL
== END ==
PROVIDERS: PCP Student in an Organized Health Care Education/Training Program; Referring Provider Student in an Organized Health Care Education/Training Program; Visit Provider Student in an Organized Health Care Education/Training Program
DX: Z32.01 Encounter for pregnancy test, result positive (principal)
CPT/HCPCS: 84702

== ENCOUNTER → 2024-12-21 09:32 | Outpatient (CLI) | payer OTHER, SELFPAY ==
[2024-12-21 10:43] LABS: Add Manual Diff / Slide Review NO; Basophils Absolute Auto 0 /uL (0-100); Basophils Percent Auto 0.5 % (0-2); Eosinophils Absolute Auto 200 /uL (0-450); Eosinophils Percent Auto 1.8 % (2-4); Hemoglobin 12.8 g/dL (12.0-16.0); Lymphocytes Absolute Auto 2700 /uL (1100-4500); Lymphocytes Percent Auto 27.7 % (25-40); Mean Corpuscular HGB Conc 33.6 % (30-36); Mean Corpuscular Hemoglobin 29.8 PG (26-34); Mean Corpuscular Volume 88.8 fL (80-100); Monocytes Absolute Auto 600 /uL (0-900); Monocytes Percent Auto 6.3 % (3-14); Neutrophils Absolute Auto 6300 /uL (1500-7000); Neutrophils Percent Auto 63.7 % (50-75); Platelet Count 342 X10^3/uL (150-400); Red Blood Cell Count 4.28 X10^6/uL (4.0-5.2); Red Cell Distribution Width 12.8 % (11.6-14.8); White Blood Cell Count 9.9 X10^3/uL (4.5-11.0)
[2024-12-21 11:03] LABS: Alanine Aminotransferase 44 IU/L (<35); Aspartate Aminotransferase 30 IU/L (14-36); BUN Creatinine Ratio 21.7 (6-22); Blood Urea Nitrogen 10 mg/dL (7-17); Estimated Glomerular Filt Rate > 60 mL/min (>60); HEMOLYSIS < 15 (0-50); Iron 168 ug/dL (37-170); Uric Acid 2.9 mg/dL (2.5-6.2)
[2024-12-21 11:17] LABS: Percent Iron Saturation 61 % (15-50); Total Iron Binding Capacity 275 ug/dL (265-497); Transferrin 252 mg/dL (206-381)
[2024-12-21 15:18] LABS: Hepatitis B Surface Antigen NEGATIVE s/c (NEGATIVE); Rubella Antibody IgG 36.2 IU/mL (>15)
[2024-12-21 15:30] LABS: HIV 1 & 2 Ab/Ag 4th Gen Combo NEGATIVE (NEGATIVE); Hep C Virus Ab w/Reflex Quant NEGATIVE s/c (NEGATIVE)
[2024-12-22 06:05] LABS: RPR Screen Non Reactive (Non Reactive)
[2024-12-22 10:08] LABS: Varicella IgG Antibody Reactive (Non Reactive)
== END ==
PROVIDERS: PCP Student in an Organized Health Care Education/Training Program; Referring Provider Student in an Organized Health Care Education/Training Program; Visit Provider Student in an Organized Health Care Education/Training Program
DX: O09.899 Supervision of other high risk pregnancies, unspecified trimester (principal); D50.9 Iron deficiency anemia, unspecified
CPT/HCPCS: 36415; 80055; 82565; 83036; 83540; 83550; 84450; 84460; 84520; 84550; 86787; 86803; 86850; 86900; 86901; 87389

== ENCOUNTER → 2024-12-22 11:39 | Outpatient (CLI) | payer OTHER, SELFPAY ==
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
== END ==
PROVIDERS: PCP Student in an Organized Health Care Education/Training Program; Referring Provider Student in an Organized Health Care Education/Training Program; Visit Provider Student in an Organized Health Care Education/Training Program
DX: O09.891 Supervision of other high risk pregnancies, first trimester (principal); O99.341 Other mental disorders complicating pregnancy, first trimester; F41.8 Other specified anxiety disorders; N96 Recurrent pregnancy loss; Z3A.01 Less than 8 weeks gestation of pregnancy
CPT/HCPCS: 76801; 76817

== ENCOUNTER → 2025-02-23 11:05 | Outpatient (CLI) | payer OTHER, SELFPAY ==
[2025-02-23 12:00] LABS: Appearance Urine UA CLEAR; Bilirubin Urine UA NEGATIVE (NEGATIVE); Color Urine UA YELLOW; Glucose Urine UA NEGATIVE (Negative); Ketones Urine UA NEGATIVE (NEGATIVE); Leukocyte Esterase Urine UA NEGATIVE (NEGATIVE); Nitrite Urine UA NEGATIVE (Negative); Occult Blood Urine UA NEGATIVE (Negative); Protein Urine UA NEGATIVE (Negative); Urobilinogen Urine UA 0.2 E.U./dL (0.2)
[2025-02-23 12:02] LABS: pH Urine UA 7.5 (4.5-8.0)
[2025-02-23 12:14] LABS: HEMOLYSIS < 15 (0-50); Iron 101 ug/dL (37-170)
[2025-02-23 12:22] LABS: Hematocrit 34.9 % (36-46); Mean Corpuscular HGB Conc 34.4 % (30-36); Platelet Count 264 X10^3/uL (150-400); Red Blood Cell Count 3.88 X10^6/uL (4.0-5.2); Red Cell Distribution Width 13.1 % (11.6-14.8); White Blood Cell Count 8.7 X10^3/uL (4.5-11.0)
[2025-02-23 12:26] LABS: Percent Iron Saturation 30 % (15-50); Total Iron Binding Capacity 340 ug/dL (265-497); Transferrin 297 mg/dL (206-381)
[2025-02-23 12:49] LABS: Ferritin 5 ng/mL (6-137)
[2025-02-23 13:18] LABS: Neutrophils Absolute Manual 5220 /uL (3000-5900); Total Cells Counted 100
[2025-02-23 13:22] LABS: RBC Morphology Normal Morphology
== END ==
PROVIDERS: PCP Student in an Organized Health Care Education/Training Program; Referring Provider Student in an Organized Health Care Education/Training Program; Visit Provider Student in an Organized Health Care Education/Training Program
DX: O09.899 Supervision of other high risk pregnancies, unspecified trimester (principal)
CPT/HCPCS: 81003; 82728; 83540; 83550; 85025; 87086

== ENCOUNTER → 2025-04-04 07:02 | Outpatient (CLI) | payer OTHER, SELFPAY ==
--- NOTE | 2025-04-04 07:03 | DI.ECHO.S_ITS ---
[facility] : : [address] : : [place] : : [id number] : : Phone: [phone] Echocardiogram Report + + :Name: SAMY BEY Study Date: 04/04/2025 Height: 60 in : :Hospital ReadingLocation: Weight: 150 lb : : Gender: Female BSA: 1.7 m2 : :: 2000 Age: 24 yrs BP: 120/73 mmHg: :Reason For Study: FAMILY HISTORY OF [place] : :Ordering Physician: GERSON, : : Performed By: Stevan Holbrook : :Referring: SARAH NIETO : + + Interpretation Summary The left ventricle is normal in size. The left ventricular ejection fraction is normal. The ejection fraction is estimated to be 60-65%. Diastolic parameters suggest probable normal left ventricular diastolic function and normal filling pressures. The right ventricle is normal in size and function. No significant valvular pathology seen, The IVC is of normal diameter and collapses greater than 50% with a sniff. This suggests a low right atrial pressure of 3 mm Hg. Procedure: A two-dimensional transthoracic echocardiogram with color flow and Doppler was performed. The study quality was technically good. There is no prior echocardiogram noted for this patient. The patient was in normal sinus rhythm during the exam. Left Ventricle: The left ventricle is normal in size. There is normal left ventricular wall thickness. There is no thrombus. A false chord is noted (normal variant). The ejection fraction is estimated to be 60-65%. The left ventricular ejection fraction is normal. There are no focal wall motion abnormalities. Diastolic parameters suggest probable normal left ventricular diastolic function and normal filling pressures. Right Ventricle: The right ventricle is normal in size and function. Atria: The left atrial size is normal. Right atrial size is normal. There is no Doppler evidence for an interatrial shunt. Mitral Valve: The mitral valve leaflets appear normal. There is no evidence of stenosis, fluttering, or prolapse. There is trace mitral regurgitation. Aortic Valve: The aortic valve is trileaflet. The aortic valve opens well. There is trace aortic regurgitation. Tricuspid Valve: The tricuspid valve leaflets are thin and pliable. There is trace tricuspid regurgitation. The right ventricular systolic pressure is estimated to be at least 17 mmHg based on an estimated right atrial pressure of 3 mm Hg. Pulmonic Valve: The pulmonic valve leaflets are thin and pliable; valve motion is normal. There is no pulmonic valvular regurgitation. Great Vessels: The aortic root is normal size. The dimensions of the ascending aorta are normal. The pulmonary artery is normal size. The IVC is of normal diameter and collapses greater than 50% with a sniff. This suggests a low right atrial pressure of 3 mm Hg. Pericardium/ Pleura There is no pericardial effusion. There is no pleural effusion. MMode/2D Measurements & Calculations LVIDd: 5.2 cm LVOT diam: 1.9 cm LVIDs: 3.3 cm Ao root diam: 2.7 cm FS: 36.2 % asc Aorta Diam: 2.7 cm EPSS: 0.52 cm Ao Arch Diam (Prox Trans): 1.2 cm IVSd: 0.77 cm LVPWd: 0.85 cm LV joseph. diameter/BSA (cm/m^2): 3.2 LV sys. diameter/BSA (cm/m^2): 2.0 LA A2 area: 15.4 cm2 RA long axis: 4.0 cm LA A4 area: 19.0 cm2 RA area: 11.9 cm2 LA length (vol): 5.7 cm RA vol: 30.1 ml LA vol: 43.9 ml RA : 18.2 ml/m2 LA vol index: 26.6 ml/m2 IVC diam: 1.6 cm RVD1 (basal): 3.2 cm RVD2 (mid): 2.6 cm TAPSE: 2.8 cm Doppler Measurements & Calculations Ao V2 max: 150.8 cm/sec LVOT Max Mookie: 109.0 cm/sec Ao V2 mean: 108.6 cm/sec LV V1 max P.8 mmHg Ao max P.1 mmHg LV V1 VTI: 25.8 cm Ao mean P.1 mmHg SUMIT(I,D): 2.0 cm2 Ao V2 VTI: 34.7 cm SUMIT(V,D): 2.0 cm2 sev ratio: 0.74 SUMIT indexed to BSA (cm^2/m^2): 1.2 MV E max mookie: 117.4 cm/sec TR max mookie: 185.5 cm/sec MV A max mookie: 46.5 cm/sec TR max P.8 mmHg MV E/A: 2.5 PA V2 max: 89.9 cm/sec Med Peak E' Mookie: 11.1 cm/sec PA V2 mean: 66.5 cm/sec E/E' med: 10.6 PA mean P.0 mmHg Lat Peak E' Mookie: 19.9 cm/sec PA pr(Accel): 8.8 mmHg E/E' lat: 5.9 E/e' average: 8.3 MV dec time: 0.14 sec SV(LVOT): 70.8 ml Reading Physician:11:40 AM
== END ==
PROVIDERS: PCP Student in an Organized Health Care Education/Training Program; Referring Provider Student in an Organized Health Care Education/Training Program; Visit Provider Student in an Organized Health Care Education/Training Program
DX: Q79.60 Ehlers-Danlos syndrome, unspecified (principal)
CPT/HCPCS: 93306

== ENCOUNTER → 2025-05-15 11:38 | Outpatient (CLI) | payer OTHER, SELFPAY ==
[2025-05-15 12:28] LABS: Hematocrit 34.9 % (36-46); Hemoglobin 12.2 g/dL (12.0-16.0); Mean Corpuscular HGB Conc 34.9 % (30-36); Mean Corpuscular Hemoglobin 31.7 PG (26-34); Mean Corpuscular Volume 90.7 fL (80-100); Platelet Count 266 X10^3/uL (150-400)
[2025-05-15 14:47] LABS: GTT (PREG) 1 Hour PP 50gm Dose 90 mg/dL (76-139)
== END ==
PROVIDERS: PCP Student in an Organized Health Care Education/Training Program; Referring Provider Student in an Organized Health Care Education/Training Program; Visit Provider Student in an Organized Health Care Education/Training Program
DX: O99.012 Anemia complicating pregnancy, second trimester (principal); D50.9 Iron deficiency anemia, unspecified; Z3A.24 24 weeks gestation of pregnancy
CPT/HCPCS: 36415; 82950; 85027

== ENCOUNTER 2025-06-08 15:43 | Outpatient (CLI) | payer OTHER, SELFPAY | END 2025-06-08 16:30 | disposition home or self-care (01) | LOC: LABOR 16:11 → OB 06-11 11:03 | PROVIDERS: PCP Student in an Organized Health Care Education/Training Program; Referring Provider Student in an Organized Health Care Education/Training Program; Visit Provider Student in an Organized Health Care Education/Training Program | DX: O36.8130 Decreased fetal movements, third trimester, not applicable or unspecified (principal); Z3A.30 30 weeks gestation of pregnancy | CPT/HCPCS: 59025; G0378; G0379 ==

== ENCOUNTER → 2025-06-15 10:50 | Outpatient (CLI) | payer OTHER, SELFPAY | LOC: LAB 10:55 | PROVIDERS: PCP Student in an Organized Health Care Education/Training Program; Visit Provider Student in an Organized Health Care Education/Training Program | DX: O26.893 Other specified pregnancy related conditions, third trimester (principal); Z3A.31 31 weeks gestation of pregnancy; N89.8 Other specified noninflammatory disorders of vagina | CPT/HCPCS: 87210 ==

== ENCOUNTER 2025-07-20 10:55 | Outpatient (CLI) | payer OTHER, SELFPAY ==
[2025-07-20 11:59] LABS: Add Manual Diff / Slide Review NO; Hematocrit 35.7 % (36-46); Hemoglobin 12.4 g/dL (12.0-16.0); Lymphocytes Absolute Auto 2100 /uL (1100-4500); Mean Corpuscular HGB Conc 34.7 % (30-36); Mean Corpuscular Hemoglobin 31.5 PG (26-34); Mean Corpuscular Volume 90.9 fL (80-100); Platelet Count 258 X10^3/uL (150-400)
[2025-07-20 12:06] LABS: Alanine Aminotransferase 16 IU/L (<35); Albumin 3.5 g/dL (3.5-5.0); Albumin Globulin Ratio 1.2 (1.0-2.8); Alkaline Phosphatase 108 U/L (38-126); Blood Urea Nitrogen 10 mg/dL (7-17); Calcium 8.9 mg/dL (8.4-10.2); Carbon Dioxide 22 mmol/L (22-32); Chloride 105 mmol/L (98-107); Estimated Glomerular Filt Rate > 60 mL/min (>60); Globulin 3.0 g/dL (1.7-4.1); Glucose 101 mg/dL (70-99); HEMOLYSIS < 15 (0-50); Potassium 3.9 mmol/L (3.4-5.1); Sodium 134 mmol/L (137-145); Total Protein 6.5 g/dL (6.3-8.2); Uric Acid 2.8 mg/dL (2.5-6.2)
[2025-07-20 12:29] LABS: Protein (Total) Urine Random 6 mg/dL (0-12); Protein Creatinine Ratio Urine 0.09 GRAM/24H
== END 2025-07-20 12:00 | disposition home or self-care (01) ==
LOC: LABOR 11:36 → OB 07-23 11:31
PROVIDERS: PCP Student in an Organized Health Care Education/Training Program; Referring Provider Student in an Organized Health Care Education/Training Program; Visit Provider Student in an Organized Health Care Education/Training Program
DX: O47.03 False labor before 37 completed weeks of gestation, third trimester (principal); Z3A.36 36 weeks gestation of pregnancy
CPT/HCPCS: 59025; 80053; 84550; 85025; G0378; G0379

== ENCOUNTER 2025-07-27 10:45 | Outpatient (CLI) | payer OTHER, SELFPAY | END 2025-07-27 11:30 | disposition home or self-care (01) | LOC: LABOR 11:35 → OB 13:13 | PROVIDERS: PCP Student in an Organized Health Care Education/Training Program; Referring Provider Student in an Organized Health Care Education/Training Program; Visit Provider Student in an Organized Health Care Education/Training Program | DX: O47.1 False labor at or after 37 completed weeks of gestation (principal); O26.23 Pregnancy care for patient with recurrent pregnancy loss, third trimester; Z3A.37 37 weeks gestation of pregnancy | CPT/HCPCS: 59025; G0378; G0379 ==

== ENCOUNTER → 2025-08-01 07:30 | Outpatient (CLI) | payer OTHER, SELFPAY ==
--- NOTE | 2025-08-01 07:31 | DI.US.S_ITS ---
PROCEDURE: US OB LIMITED INDICATIONS: EFW OUTSIDE/PRIOR DATING DATA: Last menstrual period (LMP): 11/06/2024 LMP-based estimated date of delivery (VALERIE): 08/13/2025 First dating scan (date and location): 12/22/2024 Estimated date of delivery (VALERIE) from first dating scan: 08/10/2025 The calculations are made using the clinical VALERIE of 08/13/2025 TECHNIQUE: Real-time scanning was performed of the fetus, with image documentation and biometric measurements. Biophysical profile was also obtained. Endovaginal scanning: Not performed. COMPARISON: [facility], OB <= 14 WEEKS FETUS, 12/22/2024, 14:43. FINDINGS: General: A single living intrauterine gestation is present. Presentation: Vertex Placenta: Placental position is anterior, without previa. Amniotic fluid index: 12.3 cm, normal range is 5-24 cm. Single deepest vertical pocket is 4.8 cm. heart rate: 140 beats per minute. Maternal cervical canal: Not well visualized. biometrics: Biparietal diameter: 9.0 cm, 36 weeks 2 days Head circumference: 33.2 cm, 37 weeks 6 days Abdominal circumference: 33.8 cm, 37 weeks 5 days Femur length: 7.1 cm, 36 weeks 3 days Clinically estimated gestational age: 38 weeks 2 days Composite gestational age from present scan: 37 weeks 1 day Estimated weight and percentile: 3152 g, 37th percentile IMPRESSION: 1. Single live intrauterine with appropriate interval growth. 2. Estimated weight is at the 37th percentile for gestational age. Approved by: Cali Plunkett M.D. on 08/01/2025 at 15:34
== END ==
PROVIDERS: PCP Student in an Organized Health Care Education/Training Program; Referring Provider Student in an Organized Health Care Education/Training Program; Visit Provider Student in an Organized Health Care Education/Training Program
DX: O09.899 Supervision of other high risk pregnancies, unspecified trimester (principal)
CPT/HCPCS: 76815

== ENCOUNTER 2025-08-03 10:52 | Outpatient (CLI) | payer OTHER, SELFPAY | END 2025-08-03 12:07 | disposition home or self-care (01) | LOC: LABOR 12:07 → OB 08-06 10:59 | PROVIDERS: PCP Student in an Organized Health Care Education/Training Program; Referring Provider Student in an Organized Health Care Education/Training Program; Visit Provider Student in an Organized Health Care Education/Training Program | DX: O47.1 False labor at or after 37 completed weeks of gestation (principal); O26.23 Pregnancy care for patient with recurrent pregnancy loss, third trimester; Z3A.38 38 weeks gestation of pregnancy | CPT/HCPCS: 59025; G0378; G0379 ==

== ENCOUNTER 2025-08-08 07:05 | Inpatient (IN) | payer OTHER, SELFPAY ==
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
[2025-08-08 07:59] LABS: Add Manual Diff / Slide Review NO; Hematocrit 35.4 % (36-46); Hemoglobin 12.1 g/dL (12.0-16.0); Lymphocytes Absolute Auto 2400 /uL (1100-4500); Mean Corpuscular HGB Conc 34.2 % (30-36); Mean Corpuscular Hemoglobin 30.8 PG (26-34); Mean Corpuscular Volume 89.9 fL (80-100); Platelet Count 269 X10^3/uL (150-400)
[2025-08-08 08:10] LABS: Alanine Aminotransferase 13 IU/L (<35); Albumin 3.6 g/dL (3.5-5.0); Albumin Globulin Ratio 1.2 (1.0-2.8); Alkaline Phosphatase 137 U/L (38-126); Blood Urea Nitrogen 8 mg/dL (7-17); Calcium 8.3 mg/dL (8.4-10.2); Carbon Dioxide 20 mmol/L (22-32); Chloride 107 mmol/L (98-107); Estimated Glomerular Filt Rate > 60 mL/min (>60); Globulin 3.0 g/dL (1.7-4.1); Glucose 80 mg/dL (70-99); HEMOLYSIS < 15 (0-50); Potassium 3.9 mmol/L (3.4-5.1); Sodium 133 mmol/L (137-145); Total Protein 6.6 g/dL (6.3-8.2)
[2025-08-08] MEDS: LACTATED RINGERS 1,000 ML 100 ML IV ×2 (08:32→13:32)
[2025-08-08] MEDS: OXYTOCIN PREMIX 30 UNIT/500 ML PLAST..BAG IV (08:32)
[2025-08-08 09:52] VITALS: BP 106/60
--- NOTE | 2025-08-08 10:12 | PM.AN.REGBLK ---
Regional Block Pre-procedure PMH/ROS narrative: From OB H&P: 24 yo at 39w2d for IOL for hx of pre-eclampsia, hx of hemorrhage, recurrent loss, and high risk medication use (adderall) per [facility] guidance. No other medical or obstetric complications. BP's within normal baseline range. Reports history of requiring larger doses of local anesthetic than normal - multiple doses required for dental work as well as previous epidurals. ASA Class: II Labs: Hct 35.4 % (36-46) L 08/08/25 07:42 Plt Count 269 X10^3/uL (150-400) 08/08/25 07:42 Medications: Current Medications Generic Name Dose Route Start Last Admin Trade Name Freq PRN Reason Stop Dose Admin Calcium Carbonate 1,000 mg 08/08/25 07:24 Calcium Carbonate 500 Mg Tab PO Q2HR PRN Dyspepsia Carboprost Tromethamine 250 mcg 08/08/25 07:24 Carboprost 250 Mcg/Ml Ampul IM Q90M PRN Bleeding Fentanyl 50 mcg 08/08/25 07:24 Fentanyl 100 Mcg/2 Ml Inj IV Q1H PRN Pain, Moderate (4-6) Oxytocin/Lactated Ringer's 30 unit in 500 mls @ 200 mls/hr 08/08/25 07:24 Oxytocin Premix IV CONT PRN Bleeding Protocol Tranexamic Acid 1,000 mg/ 100 mls @ 600 mls/hr 08/08/25 07:24 Sodium Chloride IV NOW PRN Bleeding Oxytocin/Lactated Ringer's 30 unit in 500 mls @ 2 mls/hr 08/08/25 07:30 08/08/25 08:32 Oxytocin Premix IV 2 milliunit/min TITRATE IRIS 2 mls/hr Protocol Administration 2 MILLIUNIT/MIN Lactated Ringer's 1,000 mls @ 100 mls/hr 08/08/25 07:30 08/08/25 08:32 Lactated Ringers IV 08/08/25 17:29 100 mls/hr CONT IRIS Administration Lidocaine HCl 20 ml 08/08/25 07:24 Lidocaine 1% 20 Ml INJ INTRA-OP PRN Post Delivery Methylergonovine Maleate 0.2 mg 08/08/25 07:24 Methylergonovine 0.2 Mg Tablet PO Q6HR PRN Heavy Bleeding Methylergonovine Maleate 0.2 mg 10/01/25 07:24 Methylergonovine 0.2 Mg/Ml Vial IM NOW PRN Bleeding Mineral Oil 30 ml 08/08/25 07:24 Mineral Oil 30 Ml Udc TOP PRN PRN Version Misoprostol 800 mcg 08/08/25 07:24 Misoprostol 200 Mcg Tablet MN NOW PRN Bleeding Misoprostol 400 mcg 08/08/25 07:24 Misoprostol 200 Mcg Tablet SL NOW PRN Bleeding Naloxone HCl 0.2 mg 08/08/25 07:24 Naloxone 0.4 Mg/Ml Vial IV Q2MIN PRN Opiate Reversal Ondansetron HCl 4 mg 08/08/25 07:24 Ondansetron 4 Mg/2 Ml Inj IV Q4HR PRN Nausea And Vomiting Oxytocin 10 unit 08/08/25 07:24 Oxytocin 10 Unit/Ml Vial IM NOW PRN Bleeding Allergies: Allergies Allergy/AdvReac Type Severity Reaction Status Date / Time etonogestrel (From Nexplanon) Allergy Severe Large area Verified 08/08/25 09:54 w/Hives; penicillin V (PENICILLIN V) Allergy Mild HIVES Verified 08/08/25 09:54 Penicillins Allergy Mild Hives, Verified 08/08/25 09:54 Throat swelling. apple (APPLE) Allergy Unknown rash, Verified 08/08/25 09:54 throat swelling bee venom protein (honey Allergy Unknown SWELLING, Verified 08/08/25 09:54 bee) (BEE VENOM PROTEIN PANIC (HONEY BEE)) ATTACKS sertraline (From Zoloft) AdvReac Severe suicidal Verified 08/08/25 09:54 Procedure Insertion date: 08/08/25 Insertion time: 12:34 Prep/Local: betadine x3 and 1% lidocaine Interspace: L34 Patient position: sitting Needle: 18 gauge PaperKarmatead (CSE: 27g Pencan through Hustead, clear CSF, 1mL 0.25% bupiv MPF) Loss of resistance with: saline ARI at (cm): 5 Catheter placed at SKIN (cm): 11 Catheter in SPACE (cm): 6 Insertion: No CSF, No Blood, No Paresthesia with insertion, No Paresthesia with injection and No Test dose reaction Initial Medications TEST DOSE time: 12:36 TEST DOSE: 1.5% lidocaine with epinephrine 1:200k (mL): 3 BOLUS DOSE time: 12:48 BOLUS DOSE (mL): 4 BOLUS DOSE med: other (infusate) Infusion INFUSION: 0.125% bupivacaine and with fentanyl 2 mcg/mL Initial rate (mL/hr): 10 Subsequent interventions: pump start 12:48, PCEA@10+4 Post-procedure Anesthesia date START: 08/08/25 Anesthesia time START: 12:23 Anesthesia date END: 08/08/25 Anesthesia time END: 14:57 Post-procedure Anesthesia Assessment: Yes CV function: HR/BP stable, Yes Resp function: RR/sat/airway adequate, Yes Post-op hydration adequate, Yes Pain control adequate, Yes Nausea & vomiting absent, Yes Temperature > 36 C, Yes Mental status appropriate and No Anesthesia complications
[2025-08-08] MEDS: ONDANSETRON 4 MG/2 ML INJ IV (11:56)
--- NOTE | 2025-08-08 12:04 | PM.OBPNLAB ---
Date/Time Date Patient Seen: 08/08/25 Time Patient Seen: 12:00 Pain Control Pain control: tolerating well Comments: requesting epidural Pelvic Exam Dilation (cm): 3 Effacement (%): 50 station: -3 Contractions Contractions on admission: regular Monitor mode: External Pitocin rate (mU/min): 8 Contraction pattern: Regular Contraction phase: Contraction Contraction intensity: Moderate Status status: Category l Heart Rate Baseline: 145 Monitor Accelerations: Present Monitor Decelerations: Absent Monitor Variability: Moderate Assessment and Plan Assessment: induction ongoing Plan: continuous present management Comments: This is a 24 yo at 39w2d here for mIOL for hx of pre-eclampsia, hx of hemorrhage, recurrent loss, and high risk medication use (adderall) per M guidance. GBS neg. -pitocin at 8 -requesting epidural -AROM after epidural in place
--- NOTE | 2025-08-08 13:15 | PM.OBPNLAB ---
Date/Time Date Patient Seen: 08/08/25 Pain Control Pain control: tolerating well Pelvic Exam Dilation (cm): 5 Effacement (%): 50 station: -2 Amniotic membrane status: Ruptured Contractions Monitor mode: External Pitocin rate (mU/min): 8 Contraction pattern: Regular Contraction phase: Contraction Contraction intensity: Moderate Status status: Category l Heart Rate Baseline: 145 Assessment and Plan Assessment: induction ongoing Plan: continuous present management Comments: AROM at this time
[2025-08-08] MEDS: FENT 2MCG/ML BUPIV 0.125% EPI 200 MCG/100 ML PLAST..BAG 10 MCG EPIDURAL (13:32)
[2025-08-08] MEDS: TRANEXAMIC ACID 1,000 MG in SODIUM CHLORIDE 0.9% 100 ML 600 MG IV (14:59)
--- NOTE | 2025-08-08 15:11 | P.PCNOB_ITS ---
Labor & Delivery Delivery date: 08/08/25 Delivery Time: 14:47 Intrapartal Events: None Cervical ripening method: none Induction method: AROM (plus pitocin ) Delivery monitor: external FHT Route of delivery: L&D Laceration Description: None Estimated blood loss (mL): 200 Anesthesia Type: Epidural Narrative: The patient progressed to C/C/+2 with pitocin augmentation and epidural anesthesia. After approximately 1 sets of maternal pushing efforts, the delivered in OA position and restituted ROGERS. The anterior shoulder delivered with gentle downward pressure. The posterior shoulder and rest of body delivered with ease. The cord was doubly clamped and cut after a 30sec delay with the i nfant placed on maternal abdomen. The placenta delivered spontaneously and was intact with a 3-vessel cord. The fundus was noted to be firm with bimanual massage and pitocin. For history of hemorrhage, patient was prophylactically given TXA and 800 mcg of rectal misoprostol. The patient tolerated delivery well and remained in the labor room with the infant at the bedside. Plan for aftercare: Routine care
[2025-08-08] MEDS: LANOLIN OINT 7 GM 1 APPLIC TOP (17:46)
[2025-08-08] MEDS: DERMOPLAST SPRAY 20% 60 ML 1 SPRAY TOP (17:46)
[2025-08-08] MEDS: IBUPROFEN 600 MG TABLET PO ×2 (17:47→23:58)
[2025-08-08] MEDS: ACETAMINOPHEN 325 MG TABLET 650 MG PO ×2 (17:47→23:59)
[2025-08-09] MEDS: ACETAMINOPHEN 325 MG TABLET 650 MG PO (05:50)
[2025-08-09] MEDS: IBUPROFEN 600 MG TABLET PO (05:50)
--- NOTE | 2025-08-09 08:04 | P.DS_ITS ---
Discharge Providers Provider Date of admission: 08/08/25 07:05 Discharge Date: 08/09/25 Primary care physician: Marzena Woods MD Consults: 08/08/25 07:24 Consult to Anesthesiology Urgent Comment: Consulting Provider: Anesthesiologist Reason for consultation: Epidural 08/08/25 15:06 Consult to Business Broker Routine Comment: 08/08/25 16:41 Consult to Business Broker Routine Comment: Discharge provider: Marzena Woods MD Summary Hospital Course Date Patient Seen: 08/09/25 Diagnoses: Term Hospital Course: This is a 24 yo G8 now P4 who presented at 39w2d for mIOL for hx of pre-e, hx of PPH, and high risk medication use (adderall). Delivery recommended at 39 weeks by MFM. Patient was induced with pitocin and AROM. She received epidural. Delivery uncomplicated. recovery uncomplicated. Peripartum Data Infant Delivery Method: Natural Vaginal Laceration Description: None complications: none Status at Discharge Cognitive/behavioral status at discharge: oriented Functional status at discharge: independent ambulation Overall status at discharge: patient is back to baseline Time Spent with Patient Time attestation: Total time spent providing and/or coordinating discharge services: 30 minutes Time spent: Greater than 30 minutes Objective Labs 08/08/25 07:42 08/08/25 07:42 Labs: Laboratory Results - last 24 hr 08/08/25 07:42 Sodium 133 L Potassium 3.9 Chloride 107 Carbon Dioxide 20 L BUN 8 Creatinine 0.37 L Estimated GFR > 60 BUN/Creatinine Ratio 21.6 Glucose 80 Calcium 8.3 L Total Bilirubin 0.8 AST 21 ALT 13 Alkaline Phosphatase 137 H Total Protein 6.6 Albumin 3.6 Globulin 3.0 Albumin/Globulin Ratio 1.2 Blood Type B Positive Antibody Screen Negative Exam Narrative Exam Narrative: NAD, resting comfortably in bed Discharge Plan Discharge Plan Patient Disposition: Home Discharge orders & Medications Prescriptions: New docusate sodium 100 mg Capsule 100 mg PO BID 30 Days Qty: 60 0RF Continued fluconazole 150 mg tablet 150 mg PO Q3D Qty: 2 0RF dextroamphetamine-amphetamine [Adderall XR] 10 mg capsule,extended release 24hr 10 mg PO DAILY Qty: 30 0RF metronidazole 500 mg tablet 500 mg PO BID Qty: 14 0RF ondansetron 4 mg tablet,disintegrating 4 mg PO Q8H PRN (Reason: nausea and vomiting) Qty: 30 3RF metoclopramide HCl 10 mg tablet 10 mg PO Q6H PRN (Reason: nausea and vomiting) Qty: 14 0RF vit-ferrous sulfat-FA 27 mg iron- 0.8 mg tablet PO Follow up/Referrals: Marzena Woods MD [Primary Care Provider, [facility]] - 09/20/25 3:00 pm Referral Note: Please Check in at 2:45 pm on September 20 for your 6 week appointment. Visit Report/Discharge Packet Stand Alone Forms: Discharge: Care, Patient Portal/API, Stroke Signs & Symptoms Discharge Data Primary Care Provider: Marzena Woods
[2025-08-09] MEDS: DOCUSATE 100 MG CAPSULE PO (09:17)
== END 2025-08-09 12:40 | disposition home or self-care (01) | DRG 560 ==
PROVIDERS: Admitting Provider Student in an Organized Health Care Education/Training Program; PCP Student in an Organized Health Care Education/Training Program; Referring Provider Student in an Organized Health Care Education/Training Program; Visit Provider Student in an Organized Health Care Education/Training Program
DX: O80 Encounter for full-term uncomplicated delivery (principal); Z3A.39 39 weeks gestation of pregnancy; Z37.0 Single live birth
CPT/HCPCS: 36415; 80053; 85025; 86850; 86900; 86901; G0379; J2405; J2590; S0191

== ENCOUNTER → 2025-08-22 11:29 | Outpatient (CLI) | payer OTHER, SELFPAY ==
[2025-08-22 12:29] LABS: Hematocrit 39.0 % (36-46); Hemoglobin 13.2 g/dL (12.0-16.0); Mean Corpuscular HGB Conc 33.7 % (30-36); Mean Corpuscular Hemoglobin 30.5 PG (26-34); Mean Corpuscular Volume 90.4 fL (80-100); Platelet Count 370 X10^3/uL (150-400)
[2025-08-22 12:45] LABS: HEMOLYSIS < 15 (0-50); Iron 202 ug/dL (37-170)
[2025-08-22 13:00] LABS: Percent Iron Saturation 61 % (15-50); Total Iron Binding Capacity 332 ug/dL (265-497); Transferrin 297 mg/dL (206-381)
[2025-08-22 13:23] LABS: Ferritin 33 ng/mL (6-137)
== END ==
PROVIDERS: PCP Student in an Organized Health Care Education/Training Program; Referring Provider Student in an Organized Health Care Education/Training Program; Visit Provider Student in an Organized Health Care Education/Training Program
DX: D50.9 Iron deficiency anemia, unspecified (principal)
CPT/HCPCS: 36415; 82728; 83540; 83550; 85027

== ENCOUNTER → 2025-09-25 10:01 | Outpatient (CLI) | payer OTHER, SELFPAY ==
[2025-09-25 11:15] LABS: Appearance Urine UA CLEAR; Bilirubin Urine UA NEGATIVE (NEGATIVE); Color Urine UA YELLOW; Glucose Urine UA NEGATIVE (Negative); Ketones Urine UA NEGATIVE (NEGATIVE); Leukocyte Esterase Urine UA NEGATIVE (NEGATIVE); Nitrite Urine UA NEGATIVE (Negative); Occult Blood Urine UA NEGATIVE (Negative); Protein Urine UA NEGATIVE (Negative); Specific Gravity Urine UA 1.015 (1.000-1.035); Urobilinogen Urine UA 0.2 E.U./dL (0.2)
[2025-09-25 11:17] LABS: pH Urine UA 6.5 (4.5-8.0)
[2025-09-25 11:23] LABS: Culture Indicated Urine Cult Not Indicated
== END ==
PROVIDERS: PCP Student in an Organized Health Care Education/Training Program; Visit Provider Obstetrics & Gynecology Gynecology
DX: Z87.59 Personal history of other complications of pregnancy, childbirth and the puerperium (principal)
CPT/HCPCS: 81001